=== PATIENT | female | born 1970 | race Caucasian/White ===

== ENCOUNTER 2017-05-20 10:54 | Emergency (ER) | payer BC ==
[~2017-05-20] VITALS: Ht 162.6 cm; Wt 53.1 kg
[2017-05-20] MEDS ORDERED: IBUPROFEN 800 MG TABLET PO ONE (11:30)
[2017-05-20] MEDS ORDERED: IBUPROFEN 800 MG TABLET ONE (11:31)
--- NOTE | 2017-05-20 12:08 | NUR ---
MSE COMPLETED, PT D/C'D HOME, ACI/RX X2 GIVEN. PT AMBULATED W/O DIFF/TOOK ALL BELONGINGS.
[2017-05-20 12:09] VITALS: BP 122/72
== END 2017-05-20 12:10 | disposition home or self-care (01) ==
LOC: ER 10:54
DX: S23.29XA Dislocation of other parts of thorax, initial encounter (principal); X58.XXXA Exposure to other specified factors, initial encounter; Y93.89 Activity, other specified; Y92.89 Other specified places as the place of occurrence of the external cause; Y99.8 Other external cause status
CPT/HCPCS: 71046; A4663